=== PATIENT | male | born 1940 | race Caucasian/White ===

== ENCOUNTER 2019-06-01 07:30 | Day surgery (SDC) | payer MEDICARE ==
[2019-05-29 08:43] VITALS: BMI 26.4
[~2019-06-01 07:30] MED LIST: LACTATED RINGERS 1,000 ML IV SCH
[2019-06-01 08:00] VITALS: RESP 16; TEMP 97.8
[2019-06-01] MEDS ORDERED: NA PHOS,M-B/NA PHOS,DI-BA 133 ML ENEMA RECTAL ONE (08:00)
[2019-06-01] MEDS ORDERED: LIDOCAINE 1% 20 ML VIAL (10MG/ML) FOR IV START INTRADERMA ONE (08:16)
[2019-06-01] MEDS ORDERED: PROPOFOL 10 MG/ML 20 ML VIAL IV ONE (08:27)
[2019-06-01] MEDS ORDERED: LIDOCAINE 1% INJ 10MG/ML (20 ML MDV) ONE (08:27)
--- NOTE | 2019-06-01 08:37 | P.GSHP ---
History of Present Illness H&P Date: 06/01/19 Chief Complaint: Diarrhea This is a 79-year-old male who presents today for colonoscopy. He's had limited diarrhea. Patient has a previous history of colectomy. Past Medical History Past Medical History: Hyperlipidemia, Hypertension, Memory Impairment, Myocardial Infarction ([place]) Last Myocardial Infarction Date:: 1992 ? History of Any Multi-Drug Resistant Organisms: None Reported Past Surgical History: Bowel Resection, Cholecystectomy, Heart Catheterization With Stent Additional Past Surgical History / Comment(s): REMOVED ALL BUT 4 INCHES OF COLON ABOUT 10 YRS AGO-R/T BLEEDING PER PT. BILAT CATARACT REMOVED WITH LENS IMPLANT. SPLEEN REMOVED, COLONOSCOPY. 6 STENTS OVER SEVERAL YEARS Past Anesthesia/Blood Transfusion Reactions: No Reported Reaction Date of Last Stent Placement:: >10 YRS AGO Smoking Status: Former smoker - Past Family History Mother Family Medical History: Cancer Medications and Allergies Home Medications Medication Instructions Recorded Confirmed Type Atorvastatin [Lipitor] 80 mg PO DAILY 05/29/19 06/01/19 History Clopidogrel [Plavix] 75 mg PO DAILY 05/29/19 06/01/19 History amLODIPine [Norvasc] 10 mg PO DAILY 05/29/19 06/01/19 History Allergies Allergy/AdvReac Type Severity Reaction Status Date / Time No Known Allergies Allergy Verified 05/29/19 08:36 Surgical - Exam Vital Signs Temp Pulse Resp BP Pulse Ox 97.8 F 64 16 140/91 94 L 06/01/19 07:59 06/01/19 07:59 06/01/19 07:59 06/01/19 07:59 06/01/19 07:59 - General well developed, well nourished, no distress - Eyes PERRL - ENT normal pinna - Neck no masses - Respiratory normal expansion - Cardiovascular Rhythm: regular - Abdomen Midline scar Abdomen: soft, non tender Assessment and Plan Assessment: Diarrhea. We'll perform colonoscopy.
--- NOTE | 2019-06-01 08:49 | P.OP ---
Date of Procedure: 06/01/19 Preoperative Diagnosis: Diarrhea Postoperative Diagnosis: Normal colonoscopy to ileocolonic anastomosis Procedure(s) Performed: Colonoscopy Anesthesia: MAC Surgeon: Kit Enriquez Pathology: none sent Condition: stable Disposition: PACU Description of Procedure: The patient's placed on the endoscopy table in the lateral position. He received IV sedation. Digital rectal exam was performed which revealed no abnormalities. The prostate was symmetric without nodules. The flexible colonoscope was then placed patient anus and passed throughout the entire colon. The patient a previous colectomy. His ileocolonic anastomosis visualized at the 30 cm juan carlos. The remainder of the sigmoid colon and rectum appeared normal. There is no evidence of any polyps or tumors. Scope was withdrawn from patient.
[2019-06-01 09:10] VITALS: BP 132/81; PULSE 62
== END 2019-06-01 09:25 | disposition home or self-care (01) ==
LOC: ORWHC2ENDO 07:30
PROVIDERS: ATTEND Surgery
DX: R19.7 Diarrhea, unspecified (principal); Z90.49 Acquired absence of other specified parts of digestive tract; Z98.0 Intestinal bypass and anastomosis status; I10 Essential (primary) hypertension; E78.5 Hyperlipidemia, unspecified; I25.10 Atherosclerotic heart disease of native coronary artery without angina pectoris; I25.2 Old myocardial infarction; Z95.5 Presence of coronary angioplasty implant and graft; R41.3 Other amnesia; Z97.2 Presence of dental prosthetic device (complete) (partial); Z87.891 Personal history of nicotine dependence; Z79.02 Long term (current) use of antithrombotics/antiplatelets; Z79.899 Other long term (current) drug therapy; Z80.9 Family history of malignant neoplasm, unspecified
CPT/HCPCS: 45378; J2001; J2704

== ENCOUNTER → 2019-06-15 | Outpatient (CLI) | payer MEDICARE ==
--- NOTE | 2019-06-15 10:08 | MR ---
EXAMINATION TYPE: MR lumbar spine wo con DATE OF EXAM: 06/15/2019 COMPARISON: NONE HISTORY: Lumbar pain TECHNIQUE: T1 and T2 axial and sagittal images of the lumbar spine are submitted. FINDINGS: There is no abnormal signal seen within the visualized spinal cord or paraspinal soft tissu es. Simple appearing left renal cyst noted. At L1-2 there is disc desiccation. No canal stenosis or foraminal encroachment. Facet arthropathy not ed. At L2-3 there is disc desiccation. No canal stenosis or foraminal encroachment. No Canal stenosis. At L3-4 there is disc desiccation with circumferential disc bulging and hypertrophy of the facets and ligamentum flavum. No Canal stenosis. Neural foramina remain patent. At L4-5 there is degenerative disc disease with facet arthropathy and ligamentum flavum hypertrophy. Broad-based central disc bulging results in mild central stenosis. There is abnormal signal posterior to the L4 vertebral body paracentrally to left which likely results in some compression of the nerve root. This is suggestive of a extruded or sequestered disc fragment. At L5-S1 there is severe degenerative disc disease with facet arthropathy and discogenic marrow roblero es. Neural foramina are patent bilaterally. No Canal stenosis. IMPRESSION: 1. At L4-5 there is broad-based central disc bulging results in mild central stenosis. There is abnor mal signal posterior to the L4 vertebral body paracentrally to left which likely results in some comp ression of the nerve root. This is compatible with a extruded or sequestered disc fragment. Post cont rast images could be obtained for confirmation. 2. Severe degenerative disc disease L5-S1 with discogenic marrow changes.
== END | disposition home or self-care (01) ==
LOC: RADMRIMAIN 08:27
PROVIDERS: ATTEND Family Medicine
DX: M48.061 Spinal stenosis, lumbar region without neurogenic claudication (principal); M51.16 Intervertebral disc disorders with radiculopathy, lumbar region; M51.17 Intervertebral disc disorders with radiculopathy, lumbosacral region
CPT/HCPCS: 72148

== ENCOUNTER → 2019-07-22 | Outpatient (CLI) | payer MEDICARE ==
[2019-07-22 12:36] VITALS: BP 119/74; PULSE 67; RESP 18
--- NOTE | 2019-07-22 20:02 | P.PAINCN ---
History of Present Illness - Reason for Consult Consult date: 07/22/19 - History of Present Illness This is a 79 years old male with a chronic history of severe low back pain with radiation to the lower extremity associated with numbness and tingling sensation, that is radiated to the lower extremity bilaterally, patient had a lumbar microdiscectomy surgery done several years ago, and he is currently complaining of increased pain, is currently on Neurontin 300 mg twice a day Herman 10/325 twice a day when necessary, the current pain medication is not helping to control his pain and he denies any side effect of the medication, he denies any fever or night sweats. 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), hx diverticulitis, Last Myocardial Infarction Date:: unknown History of Any Multi-Drug Resistant Organisms: None Reported Past Surgical History: Appendectomy, Back Surgery, Bowel Resection, Cholecystectomy, Heart Catheterization With Stent Additional Past Surgical History / Comment(s): REMOVED ALL BUT 4 INCHES OF COLON and speen removed -R/T BLEEDING, BLANKA CATARACTS, total 6 cardiac STENTS, microdisectomy Past Anesthesia/Blood Transfusion Reactions: No Reported Reaction Date of Last Stent Placement:: 13-14 yrs ago Smoking Status: Former smoker - Past Family History Mother Family Medical History: Cancer Additional Family Medical History / Comment(s): colon Medications and Allergies Home Medications Medication Instructions Recorded Confirmed Type Atorvastatin [Lipitor] 80 mg PO HS 05/29/19 07/17/19 History Clopidogrel [Plavix] 75 mg PO DAILY 05/29/19 07/17/19 History amLODIPine [Norvasc] 10 mg PO DAILY 05/29/19 07/17/19 History Aspirin [Adult Low Dose Aspirin EC] 81 mg PO DAILY 07/17/19 07/17/19 History Fish Oil/Dha/Epa [Fish Oil 1,200 1 each PO DAILY 07/17/19 07/17/19 History mg Fish Oil] Gabapentin [Neurontin] 300 mg PO BID 07/17/19 07/17/19 History HYDROcodone/APAP 10-325MG [Herman 1 tab PO BID PRN 07/17/19 07/17/19 History 10-325] Hydrochlorothiazide 25 mg PO HS 07/17/19 07/17/19 History Ibuprofen/Diphenhydramine HCl 2 each PO HS 07/17/19 07/17/19 History [Advil Pm Liqui-Gels] Joint Health 1 tab PO DAILY 07/17/19 07/17/19 History LORazepam [Ativan] 2 mg PO HS 07/17/19 07/17/19 History Metoprolol Succinate (ER) [Toprol 25 mg PO HS 07/17/19 07/17/19 History Xl] Multivitamins, Thera [Multivitamin 1 tab PO DAILY 07/17/19 07/17/19 History (formulary)] Nitroglycerin Sl Tabs [Nitrostat] 0.4 mg SUBLINGUAL Q5M PRN 07/17/19 07/17/19 History Perindopril Erbumine [Aceon] 8 mg PO DAILY 07/17/19 07/17/19 History Ubidecarenone [Co Q-10] 300 mg PO DAILY 07/17/19 07/17/19 History Vits A,C,E/Lutein/Minerals 1 each PO DAILY 07/17/19 07/17/19 History [Ocuvite with Lutein Tablet] valACYclovir [Valtrex] 500 mg PO BID 07/17/19 07/17/19 History Allergies Allergy/AdvReac Type Severity Reaction Status Date / Time No Known Allergies Allergy Verified 07/17/19 13:17 Physical Exam Vitals: Vital Signs Pulse Resp BP Pulse Ox 07/22/19 12:33 67 18 119/74 94 L REVIEW OF ORGAN SYSTEMS: CONSTITUTIONAL: No fevers or chills. No recent weight loss. EYES: History of troubles with vision. No glasses. HEENT: No difficulties with hearing. No nosebleeds. No difficulty swallowing. RESPIRATORY: Past pneumonia. Denies any troubles with breathing or dyspnea on exertion. CARDIOVASCULAR: Denies any chest pain, palpitations, or recent heart attacks. GASTROINTESTINAL: Denies fatty food intolerance. Has change in bowel habits and gas bloat. GENITOURINARY: Denies any blood in urine. Has increased urinary frequency. NEUROLOGICAL: ++numbness and tingling along the distal extremities. ++History of stroke MUSCULOSKELETAL: Has back pain, stiffness or joint arthritis. SKIN: Past t skin cancer. No rash. PSYCHIATRIC: Denies current depression or suicidal thou ghts. ENDOCRINE: Denies current thyroid disorders. Denies any blood sugar glucose intolerance. HEME/LYMPHATI= currently on Plavix. ALLERGY/IMMUNOLOGY: No immunoglobulin therapy. No immune deficiencie Physical Examinations : Constitutiona : Cooperative , not in acute distress . HEENT : nech : supple , no Lymphadenopathy , normal thyroid size . eyes : no ptosis , no icterus, no photophobia . ENT : normal of hearing , normal oropharynx , no Thrush . Respiratory : Chest clear to auscultations Bilaterally , no wheezing , no Rhonchi . Cardiovascula : regular rate and rhythem , S1 , S2 , no S3 , no S4. Gastrointestina : abdomen soft no tenderness , bowel sounds , no organomegally . Genitourinary : Defferred . neurologic : Cranial nerve II to XII intact , no focal neurological deffecit . psychatric : alert , oriented X 3 , appropriate affect , intact judgment and insight . Lymphatic : no Lymphadenopathy . musculoskeltal : Cervical Spine motor stregnth in the deltoid and biceps, normal right side , normal Left side Lumber spine moter stegnth lower extremities ,thigh and legs 5/5 Right side , 5/5 Left side deep tendon reflexes : normal Knee Jerk , normal ankle Jerk lumber facet Loading Test= negative b ilaterally Range of motion of the lumbar spine Flexion 30 degrees, extension 10 degrees strait leg raising test , positive at 45 degree Fabere test positive RT and positive LT .. Results Comments: MRI of the lumbar spine done at [facility] on 06/05/2019= multilevel lumbar degenerative disc disease and multilevel lumbar facet arthropathy Assessment and Plan Plan: Assessment and plan=. Failed Back surgery syndrome and lumbar area. Lumbar spondylosis with lumbar facet arthropathy. Patient will be good candidate to have caudal epidural steroid injection with lysis of epidural adhesions under fluoroscopy guidance Procedure risk and benefits and alternatives discussed with the patient he agreed with the preceding. He have to hold Plavix for 7 days before the procedure ,and we need to get approval from the siding mechanic Time with Patient: Greater than 30 PQRS Measure Charge Sheet Measure #130: Documentation of Current Meds in Medical Chart: Patient's medications documented in chart Measure #226: Tobacco Use: Screen & Cessation Intervention: Pt not a tobacco user Measure #111: Pneumonia Vaccination: Pneumococcal vaccine administered or previously received Measure #47: Advance Care Plan: Advance care planning discussed & documented, pt chose/unable to give Measure #412: Opioid Treatment Agreement: No documentation of signed opioid treatment agreement Measure #408: Opioid Therapy Follow-up Evaluation: Patient had NO f/u eval minimum every 3 months during opioid therapy Measure #317: Preventitive Care & Scrn High Bld Press & F/U: Normal blood pressure, f/u not required Measure #128: Body Mass Index (BMI) Screening & Follow-up: BMI documented ABOVE normal parameters - f/u documented Measure #131: Pain Assessment & Follow-up: Pain positive & plan documented, Follow-up scheduled Measure #431: Unhealthy Alcohol Use Preventative Care & Scrn: Patient not identified as an unhealthy alcohol user PQRS Narrative: Smoking Status Former smoker Blood Pressure 119/74 Pain Intensity [Lower Back] 6 Hx Alcohol Use (MH) No Home Medications: Ambulatory Orders Atorvastatin [Lipitor] 80 mg PO HS 05/29/19 Clopidogrel [Plavix] 75 mg PO DAILY 05/29/19 amLODIPine [Norvasc] 10 mg PO DAILY 05/29/19 Aspirin [Adult Low Dose Aspirin EC] 81 mg PO DAILY 07/17/19 Fish Oil/Dha/Epa [Fish Oil 1,200 mg Fish Oil] 1 each PO DAILY 07/17/19 Gabapentin [Neurontin] 300 mg PO BID 07/17/19 HYDROcodone/APAP 10-325MG [Herman 10-325] 1 tab PO BID PRN 07/17/19 Hydrochlorothiazide 25 mg PO HS 07/17/19 Ibuprofen/Diphenhydramine HCl [Advil Pm Liqui-Gels] 2 each PO HS 07/17/19 Joint Health 1 tab PO DAILY 07/17/19 LORazepam [Ativan] 2 mg PO HS 07/17/19 Metoprolol Succinate (ER) [Toprol Xl] 25 mg PO HS 07/17/19 Multivitamins, Thera [Multivitamin (formulary)] 1 tab PO DAILY 07/17/19 Nitroglycerin Sl Tabs [Nitrostat] 0.4 mg SUBLINGUAL Q5M PRN 07/17/19 Perindopril Erbumine [Aceon] 8 mg PO DAILY 07/17/19 Ubidecarenone [Co Q-10] 300 mg PO DAILY 07/17/19 Vits A,C,E/Lutein/Minerals [Ocuvite with Lutein Tablet] 1 each PO DAILY 07/17/19 valACYclovir [Valtrex] 500 mg PO BID 07/17/19
== END ==
LOC: PNWHC3 12:14
PROVIDERS: ATTEND Specialist
DX: M96.1 Postlaminectomy syndrome, not elsewhere classified (principal); M47.816 Spondylosis without myelopathy or radiculopathy, lumbar region; M46.96 Unspecified inflammatory spondylopathy, lumbar region; E78.5 Hyperlipidemia, unspecified; I10 Essential (primary) hypertension; I25.10 Atherosclerotic heart disease of native coronary artery without angina pectoris; I21.9 Acute myocardial infarction, unspecified; Z87.891 Personal history of nicotine dependence; Z79.899 Other long term (current) drug therapy; Z79.82 Long term (current) use of aspirin; Z79.891 Long term (current) use of opiate analgesic; Z79.1 Long term (current) use of non-steroidal anti-inflammatories (NSAID); Z79.02 Long term (current) use of antithrombotics/antiplatelets
CPT/HCPCS: 99211

== ENCOUNTER 2019-08-03 06:55 | Day surgery (SDC) | payer MEDICARE ==
[2019-07-29 11:12] VITALS: BMI 26.4
[2019-08-03 07:24] VITALS: TEMP 97.6
[2019-08-03] MEDS ORDERED: LACTATED RINGERS 1,000 ML IV ONE (07:27)
[2019-08-03] MEDS ORDERED: LACTATED RINGERS 1,000 ML IV SCH (08:15)
--- NOTE | 2019-08-03 08:30 | P.PCN ---
Date of Procedure: 08/03/19 Procedure(s) Performed: PREOP DIAGNOSIS: 1- Lumbar postlaminectomy syndrome. POSTOP DIAGNOSIS:1- Lumbar postlaminectomy syndrome. PROCEDURE: 1-Caudal epidural steroid injection with epidurolysis and epidurogram under fluoroscopic guidance. (Fluoroscopy images available in the radiology Department ) 2-caudal epidurogram. ANESTHESIA: moderate sedation, with Versed 2 mg and fentanyl 100 g. EBL: Minimal. PROCEDURE INDICATION: The patient with post-laminectomy syndrome with low back pain and radiculopathy radiating down in both legs, here for a caudal epidural steroid injection with epidurolysis. PROCEDURE DESCRIPTION: The patient was seen and identified in the preoperative area. Risks, benefits, complications, and alternatives were discussed with the patient. The patient agreed to proceed with the procedure and signed the consent . IV was started, and vital signs were stable. Patient was taken to the OR and time out was completed. The patient was placed in the prone position on procedure table and a pillow was placed under the abdomen to reduce lumbar lordosis. The lumbosacral area was prepped and draped in the usual sterile fashion. Vital signs were closely monitored during the procedure. lateral view and the anterior-posterior plates of the sacrum were identified with infiltration of the area overlying the sacral hiatus with 1% lidocaine .A 17 gauge RK epidural needle was used to advance through the sacral hiatus into the caudal epidural space. Omnipaque 180 dye. 2cc was injected and the position of the needle was verified to be in the midline. A Racz catheter was introduced into the epidural space and was advanced towards the L5-S1 interspace under direct fluoroscopic guidance. Multiple passes were made with the catheter for lysis of epidural adhesions. Depo-medrol 40 mg with 3ml of preservative free Lidocaine 1% and 5 ml of preservative free normal saline was injected slowly. Additional spread was seen to L4 under fluoroscopy. The needle and the catheter were withdrawn intact. EPIDUROGRAM: Omnipaque 180 mg dye 2 ml was injected with spread of the dye into the caudal epidural space and with spread cutoff at L5 prior to epidurolysis. Post epidurolysis dye 2 ml was injected and spread was seen to L3-4.There was further spread of the solution together with the dye above the L3 COMPLICATIONS: None. DISPOSITION / PLANS: The patient was placed in a supine position and transferred to the recovery area in a stable condition for observation and was discharged from the recovery room after meeting discharge criteria. Home discharge instructions given to the patient by the staff. The patient was reexamined prior to discharge. The patient will schedule a follow up in the clinic in 2-4 weeks.
[2019-08-03] MEDS ORDERED: IV FLUID CONTINUATION 650 ML IV ONE (08:40)
--- NOTE | 2019-08-03 08:40 | FL ---
EXAMINATION TYPE: FL guided pain mgmt statistic DATE OF EXAM: 08/03/2019 CLINICAL HISTORY: Low back an sacral pain. TECHNIQUE: Fluoroscopy. COMPARISON: None. FINDINGS: Fluoroscopic guidance was provided during pain relief procedure performed by Dr. Reddy . A total of 5 seconds of fluoroscopic time was utilized during the procedure and 3 spot images are acquired. Images acquired shows needle localization at level of sacrum from posterior inferior appro ach. IMPRESSION: As Above.
[2019-08-03 08:41] VITALS: RESP 18
[2019-08-03 09:08] VITALS: BP 134/84; PULSE 63
== END 2019-08-03 09:12 | disposition home or self-care (01) ==
LOC: ORPAIN 06:55
PROVIDERS: ATTEND Specialist
DX: M96.1 Postlaminectomy syndrome, not elsewhere classified (principal); G96.12 Meningeal adhesions (cerebral) (spinal); I25.10 Atherosclerotic heart disease of native coronary artery without angina pectoris; Z79.02 Long term (current) use of antithrombotics/antiplatelets
CPT/HCPCS: 62264; 99152; J2250; J1030; J3010; Q9966; C1894

== ENCOUNTER 2019-08-17 08:12 | Day surgery (SDC) | payer MEDICARE ==
[2019-08-12 16:13] VITALS: BMI 27.2
[2019-08-17 08:35] VITALS: BP 151/89; PULSE 67; RESP 18; TEMP 97.4
[2019-08-17] MEDS ORDERED: LIDOCAINE 1% 20 ML VIAL (10MG/ML) FOR IV START INTRADERMA ONE (08:44)
[2019-08-17 08:49] LABS: Glucose,Whole Blood 113 mg/dL (75-99)
--- NOTE | 2019-08-17 10:38 | P.PN ---
Progress Note - Text Progress Note Date: 08/17/19 Patient was scheduled to have a caudal epidural steroid injection with lysis of adhesions. I evaluated him in the pre-op holding area, and he reported that his pain was at a very low level. We will not proceed with this procedure today, as it is not indicated. He also reported that he is been able to cut down on his [place] O's from 2-3 tablets a day to one tablet a day, and takes this only at night. He also takes gabapentin 300 mg at night. He is interested in weaning medications. I told him to start taking half tablet of [place] daily for 2 weeks, and then half tablet every other day for 2 weeks and then stop. Following full wean of narcotics, I informed him that if he is interested in weaning gabapentin, he can take 1 tablet every other day for a week and then stop. This way, we will prevent withdrawal symptoms of narcotics and gabapentin. The patient expressed understanding of this plan. I informed him to contact our clinic at any time if he has questions.
== END 2019-08-17 09:22 | disposition home or self-care (01) ==
LOC: ORPAIN 08:12
PROVIDERS: ATTEND Anesthesiology
DX: Z53.8 Procedure and treatment not carried out for other reasons (principal)

== ENCOUNTER 2021-05-04 07:58 | Day surgery (SDC) | payer MEDICARE ==
[2021-05-03 10:18] VITALS: BMI 26.4
[~2021-05-04 07:58] MED LIST changes: +ALPRAZolam 0.25 MG TAB PO PRN; +ASPIRIN 325 MG TAB PO STA; +HEPARIN SODIUM,PORCINE 10,000 UNIT in SODIUM CHLORIDE 0.9% 1,000 ML IRRIGATION PRN; +HEPARIN SODIUM,PORCINE 2,500 UNIT in SODIUM CHLORIDE 0.9% 250 ML IRRIGATION PRN; -LACTATED RINGERS 1,000 ML IV SCH; +NITROGLYCERIN SL TABS 0.4 MG TAB SUBLINGUAL PRN; +SODIUM CHLORIDE 0.9% 1,000 ML in EMPTY BAG 1 BAG IV ONE
[2021-05-04 08:44] VITALS: RESP 16; TEMP 97.8
[2021-05-04] MEDS ORDERED: LIDOCAINE 1% INJ 10MG/ML (20 ML MDV) ONE (08:59)
[2021-05-04] MEDS ORDERED: VERAPAMIL 2.5 MG/ML 2 ML AMP ONE (08:59)
[2021-05-04] MEDS ORDERED: HEPARIN SODIUM 1,000 UN/ML (10ML VL) ONE (09:01)
[2021-05-04] MEDS ORDERED: fentaNYL (PF) 50 MCG/ML 2 ML AMP ONE (09:02)
[2021-05-04] MEDS ORDERED: fentaNYL (PF) 50 MCG/ML 2 ML AMP IV ONE (09:18)
[2021-05-04] MEDS ORDERED: LIDOCAINE 1% INJ 10MG/ML (20 ML MDV) SQ ONE (09:24)
[2021-05-04] MEDS ORDERED: VERAPAMIL SYRINGE (5 MG/10 ML) INTRAARTER ONE (09:25)
[2021-05-04] MEDS ORDERED: MIDAZOLAM 2 MG/2 ML VIAL IV ONE (09:40)
[2021-05-04] MEDS ORDERED: NITROGLYCERIN 1000MCG/10ML SYRINGE INTRACORON ONE (09:46)
[2021-05-04] MEDS ORDERED: IOPAMIDOL-370 125ML BTL INJ ONE (09:59)
[2021-05-04] MEDS ORDERED: IOPAMIDOL-370 100ML BTL INJ ONE (10:22)
[2021-05-04] MEDS ORDERED: MAG HYDROX/AL HYDROX/SIMETH 30 ML CUP PO PRN (10:23)
[2021-05-04] MEDS ORDERED: NITROGLYCERIN SL TABS 0.4 MG TAB SUBLINGUAL PRN (10:23)
[2021-05-04] MEDS ORDERED: ATROPINE SULFATE 0.1 MG/ML 10ML SYRINGE IV PRN (10:23)
[2021-05-04] MEDS ORDERED: RX INFO: IV CONTRAST WAS GIVEN 1 EACH MISC MISCELLANE PRN (10:23)
[2021-05-04] MEDS ORDERED: ZOLPIDEM 5 MG TAB PO PRN (10:23)
[2021-05-04] MEDS ORDERED: SODIUM CHLORIDE 0.9% 1,000 ML IV SCH (10:30)
[2021-05-04 12:41] VITALS: BP 130/75; PULSE 62
--- NOTE | 2021-05-04 18:36 | CC ---
CARDIAC CATHETERIZATION REPORT Mr. Lopez is a 80-year-old male with known history of coronary artery disease, multivessel stenting, who presented with symptoms of increasing chest discomfort requiring nitroglycerin sublingually. In view of that, recommendation made regarding cardiac catheterization. The procedure as well as the risks and the complications were discussed with the patient who is in full understanding and agreement. PROCEDURE: Patient was brought to photonic laboratory technician in a fasting semisedated state, after receiving fentanyl and Benadryl achieving moderate conscious sedated state. Using Xylocaine anesthesia, Seldinger technique a 6-Croatian sheath was introduced in the right radial artery. Selective right and left coronary angiography performed using 5-Croatian 3.5 bend right and left Jonathan catheter. Multiple views of the coronary artery including hemiaxial views were obtained. Following that a 5-[place] tight pigtail catheter was introduced into the left ventricle and pressures were calculated. Following that, catheters were removed. Images were reviewed. FINDINGS: LEFT MAIN: This is a short size vessel, bifurcating into left circumflex, left anterior descending artery, left main coronary artery has no evidence of high-grade stenosis. LEFT ANTERIOR DESCENDING ARTERY: This is a large-sized vessel reaching towards the apex with a wraparound the apex segment. The stented segment in the mid LAD is patent with mild intimal disease. There is mild plaque of 10-20 percent proximally. In the distal segment of the stented area, there is a 50-60 percent plaque. The rest of the vessel has no high-grade stenosis. LEFT CIRCUMFLEX: This is a large nondominant vessel giving rise to 3 obtuse marginal branches. At the takeoff of the third obtuse marginal branch, which is the largest, there is an 80% eccentric lesion in the prior stent. RIGHT CORONARY ARTERY: This is a large dominant vessel bifurcating distally into PDA and posterolateral segment and branches. The right coronary artery proximally has a 30% to 40% plaque. In the mid segment, there is a 50% plaque with no progression compared to 2013. The rest of the vessel has no high-grade stenosis. LEFT VENTRICULOGRAM: Left ventriculogram was not performed. HEMODYNAMICS: There was no gradient across the aortic valve. The left ventricular end-diastolic pressure was 20 to 24 mmHg. CONCLUSION: 1. Significant stenosis involving the proximal left circumflex. 2. Moderate disease in the RCA and moderate to significant disease in the mid LAD. RECOMMENDATION: In view of findings and anatomy and the fact that the right coronary artery has no progression, I will recommend to proceed with a Doppler flow wire interrogation of the LAD and depending on that, further recommendations will be made. Those findings and recommendations were discussed with the patient who is in full understanding and agreement. MMCRISPIN / IJN: [id number] /
--- NOTE | 2021-05-04 18:44 | PTCA ---
PERCUTANEOUSTRANS CORORONARY ANGIOGRAPHY Mr. Lopez is a 80-year-old male with known history of coronary artery disease who has been complaining of episodes of chest discomfort, underwent cardiac catheterization and was found to have a borderline significant lesion in the mid LAD and significant lesion in the left circumflex. In view of that recommendation was made regarding IFR measurement of the LAD and depending on that, further recommendations will be made. Those findings and recommendations were discussed with the patient and he is full understanding and agreement. PROCEDURE: A 6-Indonesian EBU 3.75 guiding catheter was introduced in the system. After cannulating the left main, a Doppler flow wire X was advanced into the LAD and after normalization IFR was measured at 0.94. At that time, the wire was removed and introduced into the left circumflex. Subsequently a 3.5 x 18 mm Xience Marina stent was advanced, deployed and post dilated at 16 atmospheres. Following that, the balloon was removed and a 3.75 x 12 mm NC Trek balloon was advanced and one inflation at 12 atmospheres was done. After the last inflation, after appropriate wait, the balloon and the guidewire were withdrawn back in the guiding catheter. Images were obtained and repeated. Those images revealed stable successful stenting. At that point, the guiding catheter, the balloon and the guidewire were removed. The sheath was removed. Hemostasis was obtained with deployment of a TR band. There was no immediate complication. Patient was returned to his room in stable condition. Of note, the patient had chest discomfort but no EKG changes with the inflation. He received a total of 7000 units of intravenous heparin as well as intra-arterial verapamil and he was continued on clopidogrel. RESULTS: Successful stenting of the mid left circumflex with reduction of stenosis from 85% to less than 5%. Non hemodynamic significant lesion in mid LAD RECOMMENDATION: Patient will be continued on aspirin, Plavix, statin. The importance of dual antiplatelet treatment were discussed with the patient and his family who are in full understanding and agreement. Duration of sedation is 39 minutes. MMODL / IJN: [id number] / MTDD
[2021-05-04] MEDS ORDERED: ATORVASTATIN 80 MG TAB PO SCH (21:00)
[2021-05-04] MEDS ORDERED: traZODone HCL 50 MG TAB PO SCH (21:00)
[2021-05-04] MEDS ORDERED: METOPROLOL SUCCINATE (ER) 50 MG TAB.ER.24H PO SCH (21:00)
[2021-05-04] MEDS ORDERED: LISINOPRIL-HCTZ 10-12.5 MG 1 EACH TAB PO SCH (21:00)
[2021-05-05] MEDS ORDERED: amLODIPine 10 MG TAB PO SCH (09:00)
[2021-05-05] MEDS ORDERED: ASPIRIN 81 MG PO SCH (09:00)
[2021-05-05] MEDS ORDERED: CLOPIDOGREL 75 MG TAB PO SCH (09:00)
== END 2021-05-04 13:38 | disposition home or self-care (01) ==
LOC: CATHCVL 07:58
PROVIDERS: ATTEND Internal Medicine Interventional Cardiology
DX: I25.10 Atherosclerotic heart disease of native coronary artery without angina pectoris (principal); Z20.822 Contact with and (suspected) exposure to COVID-19; T82.855A Stenosis of coronary artery stent, initial encounter; Y83.8 Other surgical procedures as the cause of abnormal reaction of the patient, or of later complication, without mention of misadventure at the time of the procedure; Z79.899 Other long term (current) drug therapy; F17.210 Nicotine dependence, cigarettes, uncomplicated; I10 Essential (primary) hypertension; I08.1 Rheumatic disorders of both mitral and tricuspid valves; Z79.02 Long term (current) use of antithrombotics/antiplatelets; E78.2 Mixed hyperlipidemia; Z86.73 Personal history of transient ischemic attack (TIA), and cerebral infarction without residual deficits
CPT/HCPCS: 93571; 93458; 87635; C9600; C1887; C1894; C1725; C1769 ×2; C1874; J2250; J2001; J3010; J1644; Q9967 ×2

== ENCOUNTER → 2023-05-09 | Outpatient (CLI) | payer MEDICARE ==
--- NOTE | 2023-05-12 11:01 | MR ---
EXAMINATION TYPE: MR brain wo/w con DATE OF EXAM: 05/09/2023 9:54 AM CLINICAL INDICATION:Male, 82 years old with history of R41.81, R41.3, Z86.73; Memory loss, light head ed COMPARISON: 06/21/2020 TECHNIQUE: Multi planar, multi sequence imaging was performed through the brain including: T1, T2, In version recovery, susceptibility weighted imaging and gradient echo imaging and Diffusion weighted im aging. The patient was then given intravenous contrast and multi planar, T1 fat-saturation images wer e obtained. IV Contrast: 9 cc Gadavist FINDINGS: Generalized cerebral atrophy with proportional dilation of ventricular system. There is remote right occipital injury with an encephalomalacia present, similar to prior. Diffusion-weighted imaging shows no evidence of restricted diffusion to suggest acute/subacute infarct. Intracranial arterial flow vo ids are maintained. Midline structures show no abnormality. Scattered foci of high T2 signal intensit y are seen within the periventricular white matter. These are not significantly changed from prior. N o evidence for mesial temporal lobe atrophy. The susceptibility weighted images do not reveal any ayden dence for micro-hemorrhage. After administration of gadolinium, no abnormal enhancement is seen. The bone marrow signal is within normal limits. Paranasal sinuses and mastoid air cells: Tracer T2 signal within the left mastoid air cells. Visualized orbits: Bilateral aphakia IMPRESSION: Overall no significant change from prior. 1. No evidence of intracranial mass, acute/subacute infarct, or abnormal enhancement. 2. Remote right occipital lobe injury with encephalomalacia. 3. Nonspecific white matter changes, likely related to small vessel ischemic disease 4. Generalized cerebral atrophy changes.
== END | disposition home or self-care (01) ==
LOC: RADMRIMAIN 09:02
PROVIDERS: ATTEND Family Medicine
DX: R90.82 White matter disease, unspecified (principal); R41.81 Age-related cognitive decline; R41.3 Other amnesia; G31.9 Degenerative disease of nervous system, unspecified; G93.89 Other specified disorders of brain; Z86.73 Personal history of transient ischemic attack (TIA), and cerebral infarction without residual deficits
CPT/HCPCS: 70553; A9585

== ENCOUNTER 2025-05-26 11:14 | Emergency (ER) | payer MEDICARE ==
[2025-05-26 11:40] VITALS: BP 111/67; PULSE 57; RESP 16; TEMP 97.6
[2025-05-26 12:02] LABS: Basophils # (A) 0.08 10*3/uL (0.00-0.10); Basophils % (A) 1.3 %; Eosinophils # (A) 0.14 10*3/uL (0.04-0.35); Eosinophils % (A) 2.3 %; HCT 44.1 % (39.6-50.0); HGB 14.5 g/dL (13.0-17.0); Lymphocytes # (A) 1.99 10*3/uL (0.90-5.00); Lymphocytes % (A) 32.6 %; MCH 31.0 pg (27.0-32.0); MCHC 32.9 g/dL (32.0-37.0); MCV 94.4 fL (80.0-97.0); Monocytes # (A) 0.69 10*3/uL (0.20-1.00); Monocytes % (A) 11.3 %; Neutrophils # (A) 3.17 10*3/uL (1.80-7.70); Neutrophils % (A) 52.0 %; Platelet Count 334 10*3/uL (140-440); RBC 4.67 10*6/uL (4.40-5.60); RDW 14.5 % (11.5-14.5); WBC 6.10 10*3/uL (4.50-10.00)
--- NOTE | 2025-05-26 12:05 | ED ---
Chest Pain HPI - General Chief Complaint: Chest Pain Stated Complaint: chest pain Time Seen by Provider: 05/26/25 12:05 Source: patient, RN notes reviewed Mode of arrival: ambulatory Limitations: no limitations - History of Present Illness Initial Comments: Quick note: 85-year-old male presented the ER for evaluation of chest discomfort. Patient reports extensive cardiac history including 7 cardiac stents. He follows up with Dr. Christianson. He reports yesterday he was having severe angina. He states he was driving when this occurred. He states chest discomfort has currently resolved. He does admit to feeling weak. Denies any shortness of breath, dizziness, lightheadedness, nausea or vomiting. - Related Data Home Medications Medication Instructions Recorded Confirmed Atorvastatin [Lipitor] 80 mg PO HS 05/29/19 05/04/21 Clopidogrel [Plavix] 75 mg PO DAILY 05/29/19 05/04/21 amLODIPine [Norvasc] 10 mg PO DAILY 05/29/19 05/04/21 Aspirin [Adult Low Dose Aspirin EC] 81 mg PO HS 07/17/19 05/04/21 Fish Oil/Dha/Epa [Fish Oil 1,200 1 each PO DAILY 07/17/19 05/04/21 mg Fish Oil] Gabapentin [Neurontin] 150 mg PO DAILY 07/17/19 05/04/21 LORazepam [Ativan] 2 mg PO HS 07/17/19 05/04/21 Multivitamins, Thera [Multivitamin 1 tab PO DAILY 07/17/19 05/04/21 (formulary)] Nitroglycerin Sl Tabs [Nitrostat] 0.4 mg SUBLINGUAL Q5M PRN 07/17/19 05/03/21 Ubidecarenone [Co Q-10] 300 mg PO DAILY 07/17/19 05/04/21 Vits A,C,E/Lutein/Minerals 1 each PO DAILY 07/17/19 05/04/21 [Ocuvite with Lutein Tablet] valACYclovir HCL [Valtrex] 500 mg PO BID 07/17/19 05/04/21 Lisinopril-Hctz 10-12.5 mg 1 tab PO HS 08/12/19 05/04/21 [Zestoretic 10-12.5] Cetirizine HCl [Zyrtec] 10 mg PO DAILY 05/03/21 05/04/21 Folic Acid(Dose Unknown) 1 tab PO DAILY 05/03/21 05/04/21 Metoprolol Succinate [Toprol XL] 50 mg PO HS 05/03/21 05/04/21 Zinc Gluconate [Zinc] 50 mg PO DAILY 05/03/21 05/04/21 traZODone HCL 50 mg PO HS 05/03/21 05/04/21 Allergies Allergy/AdvReac Type Severity Reaction Status Date / Time No Known Allergies Allergy Verified 05/03/21 10:04 Review of Systems ROS Statement: Those systems with pertinent positive or pertinent negative responses have been documented in the HPI. ROS Other: All systems not noted in ROS Statement are negative. 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), hx diverticulitis/GI bleed,"borderline diabetic" Last Myocardial Infarction Date:: unknown History of Any Multi-Drug Resistant Organisms: None Reported Past Surgical History: Appendectomy, Back Surgery, Bowel Resection, Cholecystectomy, Heart Catheterization With Stent Additional Past Surgical History / Comment(s): REMOVED ALL BUT 4 INCHES OF COLON and speen removed -R/T BLEEDING, BLANKA CATARACTS, total 6 cardiac STENTS, microdisectomy Past Anesthesia/Blood Transfusion Reactions: No Reported Reaction Date of Last Stent Placement:: unknown Past Psychological History: No Psychological Hx Reported Smoking Status: Former smoker - Past Family History Mother Family Medical History: Cancer Additional Family Medical History / Comment(s): colon General Exam - General Exam Comments Initial Comments: Visual Physical Exam Vital signs reviewed General: Well-appearing, nontoxic, no acute distress. Head: Normocephalic, atraumatic Eyes: PERRLA, EOMI ENT: Airway patent Chest: Nonlabored breathing Skin: No visual rash, normal skin tone Neuro: Alert and oriented 3 Musculoskeletal: No gross abnormalities Limitations: no limitations Course Vital Signs 05/26/25 11:38 Temperature 97.6 F Pulse Rate 57 L Respiratory 16 Rate Blood Pressure 111/67 O2 Sat by Pulse 96 Oximetry Chest Pain MDM - MDM I performed the quick note portion of this chart. Electronically signed by Silvestre Flores PA-C Was pt. sent in by a medical professional or institution ([facility], [facility], urgent care, hospital, or fpc...) When possible be specific @ -No Did you speak to anyone other than the patient for history (EMS, parent, family, police, friend...)? What history was obtained from this source @ -No Did you review nursing and triage notes (agree or disagree)? Why? @ -I reviewed and agree with nursing and triage notes Were old charts reviewed (outside hosp., previous admission, EMS record, old EKG, old radiological studies, urgent care reports/EKG's, fpc records)? Report findings @ -No old charts were reviewed Differential Diagnosis (chest pain, altered mental status, abdominal pain women, abdominal pain men, vaginal bleeding, weakness, fever, dyspnea, syncope, headache, dizziness, GI bleed, back pain, seizure, CVA, palpatations, mental health, musculoskeletal)? @ -Differential Chest Pain:Stable Angina, Unstable Angina, STEMI, NSTEMI Aortic Dissection, Pneumothorax, Musculoskeletal, Esophageal Spasm GERD, Cholecystitis, Pancreatitis, Zoster, this is not meant to be an all-inclusive list. EKG interpreted by me (3pts min.). @ -As above X-rays interpreted by me (1pt min.). @ -CXR showing no acute cardiopulmonary process. COPD changes CT interpreted by me (1pt min.). @ -None done U/S interpreted by me (1pt. min.). @ -None done What testing was considered but not performed or refused? (CT, X-rays, U/S, labs)? Why? @ -None What meds were considered but not given or refused? Why? @ -None Did you discuss the management of the patient with other professionals (professionals i.e. [facility], [facility], lab, RT, psych nurse, social media assistant, blower mechanic, teacher, desk officer, case checker)? Give summary @ -No Was smoking cessation discussed for >3mins.? @ -No Was critical care preformed (if so, how long)? @ -No Were there social determinants of health that impacted care today? How? (Homelessness, low income, unemployed, alcoholism, drug addiction, t ransportation, low edu. Level, literacy, decrease access to med. care, usp, rehab)? @ -No Was there de-escalation of care discussed even if they declined (Discuss DNR or withdrawal of care, Hospice)? DNR status @ -No What co-morbidities impacted this encounter? (DM, HTN, Smoking, COPD, CAD, Cancer, CVA, ARF, Chemo, Hep., AIDS, mental health diagnosis, sleep apnea, morbid obesity)? @ -[CAD, CVA, diabetes mellitus, GI bleed, hypertension, hyperlipidemia history GA Was patient admitted / discharged? Hospital course, mention meds given and route, prescriptions, significant lab abnormalities, going to OR and other pertinent info. @ -Patient left AGAINST MEDICAL ADVICE. 85-year-old male presented to ER for evaluation of chest pain. Workup initiated in triage given bed availability emergency department. Troponin undetectable. CXR negative for acute process. EKG sinus bradycardia. Patient eloped from the emergency department prior to through medical evaluation and completion of medical treatment Patient left AGAINST MEDICAL ADVICE Undiagnosed new problem with uncertain prognosis? @ -[No Drug Therapy requiring intensive monitoring for toxicity (Heparin, Nitro, Insulin, Cardizem)? @ -No Were any procedures done? @ -No Diagnosis/symptom? @ -AMA Acute, or Chronic, or Acute on Chronic? @ -N/A Uncomplicated (without systemic symptoms) or Complicated (systemic symptoms)? @ -N/A Side effects of treatment? @ -No Exacerbation, Progression, or Severe Exacerbation? @ -No Poses a threat to life or bodily function? How? (Chest pain, [place], GA, pneumonia, PE, COPD, DKA, ARF, appy, cholecystitis, CVA, Diverticulitis, Homicidal, Suicidal, threat to staff... and all critical care pts) @ -Undetermined Disposition Clinical Impression: Left against medical advice Disposition: LEFT AGAINST MEDICAL ADVICE Condition: Undetermined Referrals: Alena Jon DO [Primary Care Provider] - 1-2 days Time of Disposition: 06:40
[2025-05-26 12:19] LABS: ALT 164 U/L (4-49); AST 91 U/L (17-59); African American GFR (CKD) 84 (>60 ml/min/1.73 sqM); Albumin 4.3 g/dL (3.5-5.0); Alkaline Phosphatase 129 U/L (38-126); Anion Gap 10 mmol/L; Blood Urea Nitrogen 18 mg/dL (9-20); Calcium 10.1 mg/dL (8.4-10.2); Carbon Dioxide 30 mmol/L (22-30); Chloride 101 mmol/L (98-107); Glucose 96 mg/dL (74-99); Magnesium 2.2 mg/dL (1.6-2.3); Non-African American GFR(CKD) 73 (>60 ml/min/1.73 sqM); Potassium 4.2 mmol/L (3.5-5.1); Sodium 141 mmol/L (137-145); Total Protein 7.4 g/dL (6.3-8.2)
[2025-05-26 12:26] LABS: INR 0.9 (<1.2); Partial Thromboplastin Time 22.4 sec (22.0-30.0); Prothrombin Time 10.4 sec (10.0-12.5)
--- NOTE | 2025-05-26 13:21 | XR ---
EXAMINATION TYPE: XR chest 2V DATE OF EXAM: 05/26/2025 1:08 PM COMPARISON: Chest radiographs from TECHNIQUE: XR chest 2V Frontal and lateral views of the chest. CLINICAL INDICATION:Male, 85 years old with history of Chest Pain; FINDINGS: Lungs/Pleura: There is flattening of the diaphragm with increased lucency of the lungs. No evidence o f pneumothorax, pleural effusion or focal consolidation. Pulmonary vascularity: Unremarkable. Heart/mediastinum: Cardiomediastinal silhouette is prominent in size. Atherosclerotic calcifications are seen in the aorta. Musculoskeletal: Multiple level degenerative disc disease changes seen throughout the spine. IMPRESSION: 1. No acute cardiopulmonary disease process. 2. COPD changes. [facility], , 05/26/2025 1:19 PM
== END 2025-05-26 13:50 | disposition left against medical advice (07) ==
LOC: EC 11:14
DX: R07.9 Chest pain, unspecified (principal); E78.5 Hyperlipidemia, unspecified; E11.9 Type 2 diabetes mellitus without complications; I11.9 Hypertensive heart disease without heart failure; I25.10 Atherosclerotic heart disease of native coronary artery without angina pectoris; Z53.29 Procedure and treatment not carried out because of patient's decision for other reasons
CPT/HCPCS: 36415; 71046; 80053; 83735; 84484; 85025; 85610; 85730; 93005; 99285

== ENCOUNTER → 2025-05-29 | Outpatient (CLI) | payer MEDICARE ==
[2025-05-29 13:51] LABS: Hepatitis A Antibody IgM Reactive (Nonreactive); Hepatitis B Surface Antigen Nonreactive (Nonreactive); Hepatitis C IgG Antibody Nonreactive (Nonreactive)
[2025-05-29 14:08] LABS: ALT 306 U/L (10-49); AST 120 U/L (14-35); Albumin 4.2 g/dL (3.8-4.9); Albumin/Globulin Ratio 1.27 Ratio (1.60-3.17); Alkaline Phosphatase 245 U/L (41-126); Anion Gap 13.90 mmol/L (4.00-12.00); BUN/Creat Ratio 15.75 Ratio (12.00-20.00); Blood Urea Nitrogen 18.9 mg/dL (9.0-27.0); Calcium 10.6 mg/dL (8.7-10.3); Carbon Dioxide 27.1 mmol/L (21.6-31.8); Chloride 99 mmol/L (96-109); Globulin 3.3 g/dL (1.6-3.3); Glucose 166 mg/dL (70-110); Potassium 3.7 mmol/L (3.5-5.5); Sodium 140 mmol/L (135-145); Total Protein 7.5 g/dL (6.2-8.2)
== END | disposition home or self-care (01) ==
LOC: LABWHC1 09:12
PROVIDERS: ATTEND Family Medicine
DX: R10.9 Unspecified abdominal pain (principal); R79.89 Other specified abnormal findings of blood chemistry
CPT/HCPCS: 36415; 80053; 80074; 82103; 82390; 83993; 87045; 87046; 87328; 87329

== ENCOUNTER → 2025-06-04 | Outpatient (CLI) | payer MEDICARE ==
[2025-06-04 15:28] LABS: ALT 105.0 U/L (10-49); AST 42.0 U/L (14-35); Bilirubin,Unconjugated 0.61 mg/dL (0.20-1.00)
== END | disposition home or self-care (01) ==
LOC: LABWHC1 08:36
PROVIDERS: ATTEND Family Medicine
DX: R10.9 Unspecified abdominal pain (principal); R79.89 Other specified abnormal findings of blood chemistry
CPT/HCPCS: 36415; 82248; 84100; 84450; 84460